=== PATIENT | female | born 1985 | race Asian ===

== ENCOUNTER 2017-11-09 15:10 | Emergency (ER) | payer BC, OTHER ==
[~2017-11-09] VITALS: Ht 160 cm; Wt 61.2 kg
[2017-11-09 15:30] VITALS: BP 129/64
[2017-11-09] MEDS ORDERED: FLUORESCEIN SODIUM OPHTH 1 EA STRIP ONE (16:03)
[2017-11-09] MEDS ORDERED: TETRACAINE HCL/PF 0.5% UD 2 ML BOTTLE ONE (16:04)
[2017-11-09] MEDS ORDERED: FLUORESCEIN SODIUM OPHTH 1 EA STRIP OP ONE (16:30)
[2017-11-09] MEDS ORDERED: TETRACAINE HCL/PF 0.5% UD 2 ML BOTTLE OP ONE (16:30)
== END 2017-11-09 16:55 | disposition home or self-care (01) ==
LOC: ER 15:12
DX: H10.32 Unspecified acute conjunctivitis, left eye (principal); E03.9 Hypothyroidism, unspecified; Z60.2 Problems related to living alone
CPT/HCPCS: A4606; Z7610

== ENCOUNTER 2017-12-23 22:14 | Emergency (ER) | payer BC ==
[~2017-12-23] VITALS: Ht 160 cm; Wt 65.8 kg
--- NOTE | 2017-12-23 22:22 | NUR ---
SHARP INTERMITTENT MID-ABD PAIN LASTING 1-2 MINUTES, N/V/D SINCE 1600, NAD NOTED, VSS, RESP EVEN AND UNLABORED, PT WAS PUT ON THE MONITOR, WAITING FOR MD BELLA.
[2017-12-23] MEDS ORDERED: ONDANSETRON HCL/PF 4 MG/2 ML VIAL ONE (22:45)
[2017-12-23] MEDS: IV NS 0.9% 1,000 ML BAG IV ONE (23:01)
[2017-12-23] MEDS: ONDANSETRON HCL/PF 4 MG/2 ML VIAL IVP ONE (23:03)
[2017-12-23 23:05] LABS: BASOPHILS % (AUTO) 0.3 % (0.0-2.0); EOSINOPHILS % (AUTO) 2.1 % (0.0-6.0); HEMATOCRIT 43 % (33-45); HEMOGLOBIN 13.8 g/dL (11.5-14.8); LYMPHOCYTES # (AUTO) 2.2 /CMM (0.8-4.8); LYMPHOCYTES % (AUTO) 17.6 % (20.0-44.0); MEAN CORPUSCULAR HEMOGLOBIN 30 PG (26.0-33.0); MEAN CORPUSCULAR HGB CONC 33 g/dl (31.0-36.0); MEAN CORPUSCULAR VOLUME 91 fL (82-100); MONOCYTES # (AUTO) 0.4 /CMM (0.1-1.30); MONOCYTES % (AUTO) 3.2 % (2.0-12.0); NEUTROPHILS # (AUTO) 9.4 /CMM (1.8-8.9); NEUTROPHILS % (AUTO) 76.8 % (43.0-81.0); PLATELET COUNT (AUTO) 105 /CMM (150-450); RDW COEFFICIENT OF VARIATION 12.9 (11.5-15.0); RED BLOOD CELL COUNT(AUTO) 4.68 MIL/uL (4.0-5.2); WHITE BLOOD COUNT (AUTO) 12.3 K/uL (4.3-11.0)
[2017-12-23 23:16] LABS: CALCIUM, SERUM 8.7 mg/dL (8.5-10.1); CREATININE 0.9 mg/dL (0.6-1.3); POTASSIUM 3.6 mmol/L (3.5-5.1)
[2017-12-23 23:22] LABS: BILIRUBIN,DIRECT 0.1 mg/dL (0.0-0.2); BILIRUBIN,TOTAL 0.4 mg/dL (0.2-1.0)
[2017-12-23] MEDS ORDERED: KETOROLAC TROMETHAMINE INJ 30 MG/ML VIAL ONE (23:37)
[2017-12-23] MEDS: KETOROLAC TROMETHAMINE INJ 30 MG/ML VIAL IV ONE (23:38)
--- NOTE | 2017-12-24 00:28 | NUR ---
Patient discharged to home in stable condition. Written and verbal after care instructions given. Patient verbalizes understanding of instruction. IV removed. Catheter intact and site benign. Pressure and 4x4 applied to site. No bleeding noted. PT AMBULATED WITH STEADY GAIT UPON DC.
[2017-12-24 00:30] VITALS: BP 108/68
== END 2017-12-24 00:30 | disposition home or self-care (01) ==
LOC: ER 22:14
DX: R19.7 Diarrhea, unspecified (principal); R11.2 Nausea with vomiting, unspecified; E03.9 Hypothyroidism, unspecified; Z60.2 Problems related to living alone
CPT/HCPCS: 36415; 80048-TC; 80076-TC; 85025-TC; A4606; J1885; J2405; J7030; Z7610